=== PATIENT | female | born 1975 | race Caucasian/White ===

== ENCOUNTER → 2017-03-03 | Outpatient (CLI) | payer MEDICARE, MEDICAID ==
--- NOTE | 2017-03-04 11:24 | REP ---
MR LUMBAR SPINE WITHOUT CONTRAST: HISTORY: Spondylosis. Decreased signal intensity on T2 weighted images is present in the L5-S1 intervertebral disc. The disc is decreased in height. These findings are consistent with disc degeneration. There is no disc bulge or herniation at the L1-2 through L3-4 levels. The nerves exit the neural foramina without compression. A diffuse disc bulge is present at the L4-5 level. This abuts the thecal sac. The L4 nerves exit the neural foramina without compression. A diffuse disc bulge and small disc extrusion central and eccentric to the right are present at the L5-S1 level. There is inferior migration of disc material. There is minimal compression of the thecal sac and S1 nerves greater on the right than the left as they exit the thecal sac. There is hypertrophy of the posterior articulating facets. There is compression of the right L5 nerve in the neural foramen. The left L5 nerve exits the neural foramen without compression. The conus medullaris is normal in appearance terminating at the level of the L1-2 intervertebral disc. Increased signal intensity on T2-weighted images is present in the endplates of L5-S1 vertebral bodies. This represents degenerative change. IMPRESSION: 1. Diffuse disc bulge at the L4-5 level. This abuts the thecal sac. 2. Diffuse disc bulge and small disc extrusion at the L5-S1 level with minimal compression of the thecal sac and S1 nerves greater on the right than on the left as they exit the thecal sac. Signed by Jimmy Campa MD 03/04/2017 09:34 A
== END ==
LOC: M RAD 18:38
PROVIDERS: ATTEND Neurological Surgery
DX: M47.896 Other spondylosis, lumbar region (principal); M51.27 Other intervertebral disc displacement, lumbosacral region

== ENCOUNTER → 2017-06-29 | Outpatient (CLI) | payer MEDICARE, MEDICAID ==
--- NOTE | 2017-07-03 13:46 | SLEEPCENT ---
DATE OF STUDY: 06/29/2017 ORDERING PROVIDER: Shraddha Brownlee NP Nocturnal polysomnography was performed for evaluation of sleep apnea syndrome symptoms in this patient with a history of snoring and nonrestorative sleep. 8 hours and 4 minutes of data were reviewed. There were 390 minutes of sleep identified. Sleep latency was normal at 13 minutes. The patient did not achieve rapid eye movement (REM) sleep. Sleep architecture was poor with poor progression and significant fragmentation. Overall sleep efficiency was 82%. Electrocardiogram (EKG) showed a sinus rhythm with an average heart rate of 56 beats per minute. Electroencephalogram (EEG) showed significant alpha intrusion into non-REM stages. No focal events were identified. There were only six respiratory events identified of 10 seconds in duration or greater for an apnea-hypopnea index within normal limits of 0.9. Snoring was, however, significant throughout the test, and respiratory-related arousals occurred 3.1 times per hour with some limb activity but no trains of events. Limb movement arousal index 3.2. The remaining measures of sleep physiology were normal. IMPRESSION: Normal nocturnal polysomnography with snoring. RECOMMENDATION: Given the frequency of arousal from respiratory events, interventions to optimize upper airway tone and reduce snoring may improve the quality of the patient's sleep.
== END ==
LOC: M SLEEP 19:34
PROVIDERS: ATTEND Nurse Practitioner Adult Health
DX: G47.30 Sleep apnea, unspecified (principal)